=== PATIENT | male | born 1960 | race Hispanic/Latino ===

== ENCOUNTER → 2024-09-08 | Outpatient (CLI) | payer MEDICARE ==
--- NOTE | 2024-09-08 16:33 | HMCIMG ---
CHEST 2VWS HISTORY: Pneumonia COMPARISON: None FINDINGS: Frontal and lateral projections of the chest were obtained. Minimal bilateral pulmonary infiltrates are seen. The heart is not enlarged. No evidence of aortic calcification is seen. Degenerative changes are seen of the thoracolumbar spine. IMPRESSION: 1. Minimal bilateral pulmonary infiltrates.
== END | disposition home or self-care (01) ==
LOC: RAH 13:41
PROVIDERS: ATTEND Internal Medicine
DX: J18.9 Pneumonia, unspecified organism (principal); M47.815 Spondylosis without myelopathy or radiculopathy, thoracolumbar region
CPT/HCPCS: 71046

== ENCOUNTER 2024-10-23 20:54 | Emergency (ER) | payer MEDICARE ==
[~2024-10-23] VITALS: Ht 162.6 cm; Wt 99.3 kg
--- NOTE | 2024-10-23 21:39 | ERN ---
ED Note History of Present Illness Stated Complaint: RECTAL BLEEDING Chief Complaint: Rectal Bleed Time Seen by MD: 21:13 Time Seen by Midlevel: 21:20 Dictation: 64-year-old male coming in for rectal bleeding. Patient states he has had right upper quadrant pain for the last couple of weeks, today he was outside water in his plans fill the ear to have a BM and when he went to the bathroom he said all the came out was blood. Patient states it was dark red. Denies being on any blood thinners. Denies drinking, drug use. Allergies: Coded Allergies: No Known Allergies (Unverified Allergy, Unknown, 10/23/24) Past Medical History Past Medical History: Diabetes-Type II, Hypertension, Seizure Surgical History: None Review of System Dictation Constitutional: Negative for fever,chills, and weight loss Eyes: Negative for injury, pain,redness, and discharge ENT: Negative for injury,pain or swelling Cardiovascular: Negative for chest pain, palpitations, and edema Respiratory: Negative for shortness of breath, cough, and wheezing, Abdomen/GI: Right upper quadrant abdominal pain, nausea, vomiting, diarrhea, and constipation Back: Negative for injury and pain : Negative for injury, bleeding and discharge , complaining of bloody stools MS/Extremity: Negative for injury and deformity Skin: Negative for rash, and discoloration Neuro: Negative for headache, weakness, numbness, tingling, and seizure Psych: Negative for suicide ideation, homicidal ideation, and hallucinations Review of Systems: was completed Initial Vital Sign VS Vital Signs Date Time Temp Pulse Resp B/P (MAP) Pulse Ox O2 Delivery O2 Flow Rate FiO2 10/23/24 21:19 98.1 68 20 181/87 96 Room Air 10/23/24 21:45 0 21 Physical Exam Dictation General: awake, alert, NAD Head/Face: Normocephalic, atraumatic Eyes: PERRL, EOMI, vision at baseline ENT: oral cavity clear, TMs clear, no signs of infection Neck: Trachea midline, supple, no nuchal rigidity Cardiovascular: RRR, normal S1/S2, No MRGs, no JVD Respiratory: CTAB, no respiratory distress, No rales or wheezes Abdomen: Soft, mild tenderness to palpation to bilateral upper quadrants, non- distended, normal bowel sounds, no guarding or rebound. Skin: Warm, dry, normal turgor, no rash MS/Extremity: Pulses equal, no cyanosis, neurovascular intact, FROM Neuro: COAx4, GCS 15, strength 5/5, CN 2-12 intact, normal cerebellar exam, normal gait, Psych: Normal behavior, mood, and affect normal Results (Laboratory/Radiology) Laboratory/Radiology Laboratory Tests Test 10/23/24 21:55 10/23/24 22:09 Stool Occult Blood POSITIVE (NEGATIVE) H White Blood Count 9.0 K/uL (4.8-10.8) Red Blood Count 4.98 MIL/uL (4.50-6.20) Hemoglobin 14.9 g/dL (14.0-18.0) Hematocrit 44.7 % (42-54) Mean Corpuscular Volume 89.8 fL (79-99) Mean Corpuscular Hemoglobin 29.9 pg (27.0-33.0) Mean Corpuscular Hemoglobin Concent 33.3 g/dL (32.0-36.0) Red Cell Distribution Width 13.0 % (11.0-15.5) Platelet Count 211 K/uL (130-400) Mean Platelet Volume 11.7 fL (7.5-10.5) H Immature Granulocyte % (Auto) 0.2 % (0-1) Neutrophils (%) (Auto) 43.9 % (40.0-77.0) Lymphocytes (%) (Auto) 43.2 % (21.0-51.0) Monocytes (%) (Auto) 10.3 % (3.0-13.0) Eosinophils (%) (Auto) 2.0 % (0.0-8.0) Basophils (%) (Auto) 0.4 % (0.0-5.0) Neutrophils # (Auto) 3.9 K/uL (1.8-7.7) Lymphocytes # (Auto) 3.9 K/uL (1.0-4.8) Monocytes # (Auto) 0.9 K/uL (0.1-1.0) Eosinophils # (Auto) 0.18 K/uL (0.00-0.70) Basophils # (Auto) 0.04 K/uL (0.00-0.20) Absolute Immature Granulocyte (auto 0.02 K/uL (0-1) Nucleated Red Blood Cells 0.0 % (0.0-0.19) Prothrombin Time 10.6 SEC (9.6-11.6) Prothromb Time International Ratio 1.00 (0.85-1.15) Activated Partial Thromboplast Time 32.6 SEC (26.3-35.5) Sodium Level 138 mmol/L (136-145) Potassium Level 3.8 mmol/L (3.5-5.1) Chloride Level 99 mmol/L (101-111) L Carbon Dioxide Level 27 mmol/L (21-32) Blood Urea Nitrogen 14 mg/dL (7-18) Creatinine 0.9 mg/dL (0.5-1.3) Glomerular Filtration Rate Calc 95 mL/min (>90) Random Glucose 114 mg/dL (70-105) H Total Calcium 9.3 mg/dL (8.5-10.1) Total Bilirubin 0.3 mg/dL (0.2-1.0) Direct Bilirubin 0.1 mg/dL (0.0-0.3) Aspartate Amino Transf (AST/SGOT) 27 U/L (10-37) Alanine Aminotransferase (ALT/SGPT) 47 U/L (12-78) Alkaline Phosphatase 106 U/L (50-136) Total Protein 8.1 g/dL (6.0-8.3) Albumin 3.9 g/dL (3.5-5.0) Labs Reviewed?: Yes ED Course ED Course Orders Procedure Category Date Status Time Cbc With Differential LAB 10/23/24 Complete 21:28 Basic Metabolic Panel LAB 10/23/24 Complete 21:28 Pt And Ptt LAB 10/23/24 Complete 21:28 Hepatic Function Panel LAB 10/23/24 Complete 21:28 Occult Blood Stool LAB 10/23/24 Complete Single Only 21:28 Pantoprazole 40mg Inj PHA 10/23/24 Complete (Protonix 40mg Inj 21:28 Ct Abdomen/Pelvis CT 10/23/24 Resulted W/Contrast 22:49 Iohexol (Omnipaque) PHA 10/23/24 Complete 23:43 Current Medications Medications (Trade) Dose Ordered Sig/Grzegorz Route PRN Reason Start Time Stop Time Status Last Admin Dose Admin Iohexol (Omnipaque) 35,000 mg STK-MED ONCE IV 10/23/24 23:43 10/23/24 23:43 DC Pantoprazole Sodium (PROTonix 40MG INJ) 80 mg ONCE STAT IVP 10/23/24 21:28 10/23/24 21:32 DC 10/23/24 22:27 Vital Signs Date Time Temp Pulse Resp B/P (MAP) Pulse Ox O2 Delivery O2 Flow Rate FiO2 10/24/24 00:00 98.1 65 18 139/78 96 Room Air* 0 21 10/23/24 22:30 98.1 67 18 136/75 96 Room Air* 0 21 10/23/24 21:45 67 18 156/78 98 Room Air* 0 21 10/23/24 21:19 98.1 68 20 181/87 96 Room Air Medical Decision Making MDM Patient with bright red blood per rectum. She has scan shows no masses or obvious causes of bleeding. He does have some renal cysts. CBC is normal. As is the chemistry panel. I discussed the patient with the hospitalist who said that a patient like this may or may not get a colonoscopy immediately by the GI service where he to be admitted to the hospital tonight. The patient is at a low risk of bleeding and needing a blood transfusion going by the [place] score. I explained this to the patient and he would rather try and set up an outpatient colonoscopy. I cautioned him on the signs and symptoms of anemia, and to come back if his bleeding continues to be profuse. DX & DISP Disposition: Discharge Departure Impression: Primary Impression: Rectal bleeding Condition: Stable Additional Instructions: Please return if you feel weak and have low blood pressure or if the bright red blood per rectum continues for several days. Referrals: KIN PARKER MD (PCP) SRINI ALMAGUER NP Oct 23, 2024 21:39 JUSTYNA TOMAS MD Oct 24, 2024 01:16
[2024-10-23 22:15] LABS: BASOPHILS # (AUTO) 0.04 K/uL (0.00-0.20); BASOPHILS % (AUTO) 0.4 % (0.0-5.0); EOSINOPHILS # (AUTO) 0.18 K/uL (0.00-0.70); HEMATOCRIT 44.7 % (42-54); IMMATURE GRANULOCYTE ABSOLUTE 0.02 K/uL (0-1); LYMPHOCYTES # (AUTO) 3.9 K/uL (1.0-4.8); LYMPHOCYTES % (AUTO) 43.2 % (21.0-51.0); MEAN CORPUSCULAR HEMOGLOBIN 29.9 pg (27.0-33.0); MEAN CORPUSCULAR HGB CONC 33.3 g/dL (32.0-36.0); MEAN CORPUSCULAR VOLUME 89.8 fL (79-99); MONOCYTES # (AUTO) 0.9 K/uL (0.1-1.0); MONOCYTES % (AUTO) 10.3 % (3.0-13.0); NEUTROPHILS # (AUTO) 3.9 K/uL (1.8-7.7); NEUTROPHILS % (AUTO) 43.9 % (40.0-77.0); PLATELET COUNT (AUTO) 211 K/uL (130-400); RED BLOOD CELL COUNT(AUTO) 4.98 MIL/uL (4.50-6.20)
[2024-10-23] MEDS: PANTOPrazole 40 MG/VIAL IVP STA (22:27)
[2024-10-23 22:28] LABS: PROTHROMBIN TIME 10.6 SEC (9.6-11.6)
[2024-10-23 22:29] LABS: PARTIAL THROMBOPLASTIN TIME 32.6 SEC (26.3-35.5)
[2024-10-23 22:38] LABS: CREATININE 0.9 mg/dL (0.5-1.3); POTASSIUM 3.8 mmol/L (3.5-5.1)
[2024-10-23 22:43] LABS: ALBUMIN 3.9 g/dL (3.5-5.0); BILIRUBIN,DIRECT 0.1 mg/dL (0.0-0.3); BILIRUBIN,TOTAL 0.3 mg/dL (0.2-1.0); TOTAL PROTEIN, SERUM 8.1 g/dL (6.0-8.3)
[2024-10-23] MEDS ORDERED: IOHEXOL 350 MG/ML 100ML INFUS..BTL IV ONE (23:43)
--- NOTE | 2024-10-24 00:27 | HMCIMG ---
CT ABDOMEN/PELVIS W/CONTRAST HISTORY: Rectal bleeding COMPARISON: None TECHNIQUE: Multiple sequential axial images of the abdomen and pelvis were obtained from the dome of the diaphragm through symphysis pubis. Patient was not given contrast through intravenous route. Oral contrast was not given. FINDINGS: No pleural effusion is seen bilaterally. There is no evidence of parenchymal disease or pulmonary nodule of the visualized lower lungs. Degenerative changes of the thoracolumbar spine are present. The heart is not enlarged. Liver measures 18 cm. The liver, spleen, adrenal glands and pancreas are unremarkable. There is no evidence of hydronephrosis bilaterally. No evidence of renal stone is seen. There is left parapelvic renal cyst measuring 2.6 cm. Fecal material is seen in the colon. There are normal size retroperitoneal and mesenteric lymph nodes. No ascites is seen. No CT evidence of acute appendicitis is seen.. There is diverticulosis. Pelvic sidewalls are symmetric bilaterally. The bladder is poorly distended. IMPRESSION: 1. Diverticulosis. No ascites is CT was performed with one or more following dose reduction techniques: automated exposure control, adjustment of the mA and kv according to patient's size, or use of a iterative reconstruction technique.
[2024-10-24 01:21] VITALS: BP 140/74; PULSE 66; RESP 18; TEMP 98.1; O2SAT 96
== END 2024-10-24 01:23 | disposition home or self-care (01) ==
LOC: EDH 20:54
DX: K62.5 Hemorrhage of anus and rectum (principal); R10.11 Right upper quadrant pain; E11.9 Type 2 diabetes mellitus without complications; I10 Essential (primary) hypertension
CPT/HCPCS: 99285; 74177; 96374; 82270; 80076; 80048; 85025; 85610; 85730; 36415; J2470; Q9967

== ENCOUNTER → 2024-11-12 | Outpatient (CLI) | payer MEDICARE ==
--- NOTE | 2024-11-12 17:06 | HMCIMG ---
SHOULDER COMP 2+VWS LT HISTORY: Shoulder impingement COMPARISON: None TECHNIQUE: 2 images of the left shoulder were obtained. FINDINGS: There is no acute displaced fracture or dislocation. Degenerative changes are seen. IMPRESSION: 1. Findings as described above.
== END | disposition home or self-care (01) ==
LOC: RAH 14:56
PROVIDERS: ATTEND Internal Medicine
DX: M19.012 Primary osteoarthritis, left shoulder (principal); M75.42 Impingement syndrome of left shoulder
CPT/HCPCS: 73030

== ENCOUNTER → 2025-03-13 | Outpatient (CLI) | payer MEDICARE ==
--- NOTE | 2025-03-14 09:28 | HMCIMG ---
EXAMINATION: SOFT TISSUE ULTRASOUND OF THE LEFT SHOULDER. CLINICAL HISTORY: History of old rotator cuff injury. COMPARISON: None. TECHNIQUE: Transverse and longitudinal images were obtained in the left shoulder. FINDINGS: The supraspinatus is thin and irregular with possible partial tear. There is irregular contour at the insertion site. The visualized infraspinatus and subscapularis appear normal. There is trace fluid around the biceps tendon in the biccipital groove. There is mild acromioclavicular joint bony irregulrity. There is no bursitis. IMPRESSION: Possible partial tear of the supraspinatus at the insertion site. Trace fluid in the bicicpital group. Mild acromioclavicular joint osteoarthritis. Recommend MRI. /Malgorzata
== END | disposition home or self-care (01) ==
LOC: RAH 14:56
PROVIDERS: ATTEND Internal Medicine
DX: S46.092A Other injury of muscle(s) and tendon(s) of the rotator cuff of left shoulder, initial encounter (principal); K43.9 Ventral hernia without obstruction or gangrene; G40.909 Epilepsy, unspecified, not intractable, without status epilepticus; M19.012 Primary osteoarthritis, left shoulder; M75.52 Bursitis of left shoulder; X58.XXXA Exposure to other specified factors, initial encounter; Y93.89 Activity, other specified; Y92.89 Other specified places as the place of occurrence of the external cause; Y99.8 Other external cause status
CPT/HCPCS: 76882